=== PATIENT | female | born 1955 | race Caucasian/White ===

== ENCOUNTER 2016-10-03 13:19 | Inpatient (IN) | payer OTHER ==
[~2016-10-03] VITALS: Ht 157.5 cm; Wt 95.6 kg
[~2016-10-03 13:19] MED LIST: ALBU18HF INHALATION; AMLO10TA3 PO; ASPI-973 PO; CLOP75TA3 PO; FLUT12AE10 INHALATION; GABA300C PO; LEVO175T29 PO; LOSA100T29 PO; MONT10TA23 PO; PANT40TA3 PO; SALM50DI INH; SIMV80TA4 PO
[2016-10-03 13:31] VITALS: BP 154/77; PULSE 85; RESP 15; O2SAT 100
--- NOTE | 2016-10-03 13:55 | DRSVH ---
PROCEDURE: CT BRAIN (TPA) ([id number]) INDICATIONS: Stroke TECHNIQUE: Noncontrast 4.5 mm thick angled axial sections acquired from the foramen magnum to the vertex, with c oronal reformats. COMPARISON: [facility], CT, BRAIN (TPA), 08/14/2016, 19:32. FINDINGS: Image quality: Excellent. CSF spaces: Basal cisterns are patent. No extra-axial fluid collections. Ventricles are normal in size and shape. Brain: No midline shift. No intracranial masses or hemorrhage. Madison-white matter interface is norm al. Skull and face: Calvarium and visualized facial bones are intact, without suspicious lesions. Sinuses: Visualized sinuses and mastoids are clear. IMPRESSION: No stroke found, no mass or hemorrhage identified. No contraindication to TPA is found. Findings immediately called to the emergency room physician at 13:51 in the early afternoon. This study fulfills neurological imaging criteria for inclusion or exclusion of acute stroke therapie s based on available published neurological imaging guidelines. Dictated by: Bon Ramirez M.D. on 10/03/2016 at 13:53 Approved by: Bon Ramirez M.D. on 10/03/2016 at 13:53
--- NOTE | 2016-10-03 13:59 | ED.REPORT ---
HPI-Neurologic Deficit Date of Service Oct 03, 2016 ED Provider: Leonard Rapp MD A 60 year old female with a history of TIA, CVA and hypertension presents to the ED complaining of right-sided numbness that began at 1230. Patient reports numbness in her face, right arm and right toes. Her last known well was 1230. Patient's symptoms have been constant since onset. Patient had a CVA on 07/18 that affected her right side and a TIA on 08/14 affected her left side. Patient is currently taking Plavix. She denies weakness, difficulty speaking or blurry vision. Nursing Notes Stated Complaint: POSS STROKE Chief Complaint: Stroke Symptoms Nursing Notes Reviewed: Yes Allergies: Coded Allergies: cephalexin (Verified Allergy, Intermediate, Hives, 10/03/16) Scheduled Amlodipine (Amlodipine) 10 Mg Tablet 10 MG PO DAILY Aspirin (Aspirin) 81 Mg Tablet 81 MG PO DAILY Clopidogrel Bisulfate (Plavix) 75 Mg Tablet 75 MG PO DAILY Fluticasone Propionate (Flovent HFA 220 mcg) 12 Gm Aer.w.adap 2 PUFFS INHALATION BID Gabapentin (Neurontin) 300 Mg Capsule 300 MG PO 0830,12 Gabapentin (Neurontin) 300 Mg Capsule 600 MG PO HS Levothyroxine (Levoxyl) 175 Mcg Tablet 175 MCG PO DAILY Losartan Potassium (Losartan Potassium) 100 Mg Tablet 100 MG PO DAILY Montelukast (Montelukast) 10 Mg Tablet 10 MG PO DAILY Pantoprazole DR (Pantoprazole DR) 40 Mg Tablet.dr 40 MG PO BID Salmeterol Xinafoate (Serevent Diskus) 50 Mcg/Puff Inhaler 1 PUFF INH BID Simvastatin (Simvastatin) 80 Mg Tablet 80 MG PO HS Scheduled PRN Albuterol Sulfate (Ventolin HFA Inhaler) 200 Puff/18 Gm Inhaler 2 PUFFS INHALATION BID PRN PRN For Shortness of Breath General Time Seen by Provider: 13:25 Chief Complaint Other (Right Sided Numbness) Hx Obtained From: Patient Arrived By: Walk-in Sudden in Onset?: Yes Onset Occurred: 1 - 4 hours ago (1230) Symptom Duration: Since onset Progression Since Onset: Constant Associated with: Denies: Weakness Pertinent Negative: Pt denies other symptoms Recent Healthcare: Recent doctor visit, Recent hospitalization Risk Factors TPA Administration/Criteria Stroke Thrombolytic Therapy : TPA Considered: Yes TPA Administered Intravenously: No, exclusion criteria NIH Stroke Scale Level of Consciousness: Alert and responsive (0) Ask Month & Age: Both questions right (0) Open/Close Eyes/Hand Warp Splitter: Performs both tasks (0) Horizontal EO Movements: None (0) Visual Baltazar: No visual loss (0) Facial Palsy: Normal symmetry (0) Right Arm Motor Drift (10s): No drift 10 sec (0) Left Arm Motor Drift (10s): No drift 10 sec (0) Right Leg Motor Drift (5s): No drift 5 sec (0) Left Leg Motor Drift (5s): No drift 5 sec (0) Limb Ataxia FNF/Heel-Gonzalez: No ataxia (0) Sensation (Arms/Legs/Face): Pinprick less sharp (1) Language Aphasia: No aphasia, normal (0) Dysarthria: No dysarthria, normal (0) Extinction/Inattention: No exctinct/inattent (0) NIHSS Score: 1 Time NIHSS Performed: 13:30 Past Medical History Past Medical History Notes: Admitted 07/18/2016 for CVA with right sided facial numbness and MRI positive for stroke in the left thalamus, see neurology consultation by Dr. Street, discharged on low-dose aspirin and statin therapy PCP: Dr. Alvin Gonzalez Past Medical History CVA 07/18/16 hypothyroidism GERD hypertension asthma pre diabetes pancreatitis Reports: Transient ischemic attack Past Surgical History Toe surgery Family History Father had a stroke Smoking History Unknown if Ever Smoker Social History Other Social History: Good social support, , Local resident Ambulatory Status Independent Review of Systems Constitutional: Denies: Chills, Fever Eyes: Denies: Blurred bilateral Respiratory: Denies: Shortness of breath Cardiovascular: Denies: Chest pain GI: Denies: Abdominal pain, Nausea, Vomiting Neurologic: Reports: Numbness (Right side of face, right arm and nasal ), Denies: Change LOC, Slurred speech, Unable to speak, Vision change Complete sys rev & neg: except as marked. Physical Exam Initial Vital Signs Vital Signs (First) Date Time Temp Pulse Resp B/P Pulse Ox O2 Delivery O2 Flow Rate FiO2 10/03/16 13:31 36.7 85 15 154/77 100 Room Air Initial VS: Reviewed Extremities: Vascular intact, Neuro intact, No swelling, No tenderness Skin: Warm, Dry, No cyanosis Psychiatric: Mood/affect normal, Behavior normal, Normal thought content General/Constitutional: Awake, Alert Head / Eyes: Atraumatic, Normocephalic Respiratory / Chest: Atraumatic, Breath sounds NL, Breath sounds = bilat Cardiovascular: Heart rate NL, Regular rhythm, Heart sounds NL, No gallop, No murmurs, No rubs Neurologic: Oriented X3 NERUO: See NIH Stroke Scale in Risk Interpretation & Diagnostics Lab Results Interpretation Result Diagram: 10/03/16 1359 10/03/16 1359 Test 10/03/16 13:59 10/03/16 15:15 White Blood Count 9.9th/mm3 (3.8-10.1) Red Blood Count 4.62mil/mm3 (3.90-5.20) Hemoglobin 13.0g/dL (12.0-15.6) Hematocrit 40.9% (35.0-46.0) Mean Corpuscular Volume 88.5fL (81-100) Mean Corpuscular Hemoglobin 28.1pg (27.0-35.0) Mean Corpuscular Hemoglobin Concent 31.8% (32.0-37.0) Red Cell Distribution Width 13.7% (12.3-15.4) Platelet Count 196bil/L (150-400) Neutrophils (%) (Auto) 65.6% (40-74) Lymphocytes (%) (Auto) 23.0% (14-46) Monocytes (%) (Auto) 8.4% (4-12) Eosinophils (%) (Auto) 2.7% (0-5) Basophils (%) (Auto) 0.1% (0-3) Prothrombin Time 10.0sec (8.1-12.5) Prothromb Time International Ratio 0.94ratio Activated Partial Thromboplast Time 28.2sec (22.8-33.0) Sodium Level 141mEq/L (134-144) Potassium Level 3.5mEq/L (3.5-5.2) Chloride Level 101mEq/L (97-108) Carbon Dioxide Level 27mmol/L (18-29) Blood Urea Nitrogen 8mg/dL (8-27) Creatinine 0.53mg/dL (0.57-1.00) Estimat Glomerular Filtration Rate 167mL/min (>59) Glucose Level 121mg/dL (60-99) Calcium Level 8.9mg/dL (8.5-10.1) Total Bilirubin 0.3mg/dL (0.0-1.2) Aspartate Amino Transf (AST/SGOT) 16U/L (0-50) Alanine Aminotransferase (ALT/SGPT) 17U/L (0-32) Alkaline Phosphatase 110U/L (25-165) Troponin T < 0.010ug/L (0.0-0.011) Total Protein 7.5g/dL (6.4-8.4) Albumin 3.2g/dL (3.4-5.0) Hold Muro Top Tube Received (Received) ECG Interpretation ECG Interpretation: Normal Sinus Rhythm Rate 69 Time: 14:19 Interpreted by: ED physician Normal ECG Interpretation: No change from prior ECGs (08/14) CT Head Interpretation IMPRESSION: No stroke found, no mass or hemorrhage identified. No contraindication to TPA is found. Findings immediately called to the emergency room physician at 13:51 in the early afternoon. This study fulfills neurological imaging criteria for inclusion or exclusion of acute stroke therapies based on available published neurological imaging guidelines. Dictated by: Bon Ramirez M.D. on 10/03/2016 at 13:53 Study: Head CT no contrast Interpretation / Wet Read by: Interpret - Radiologist Re-Eval/Medical Decision Med Decision/Clinical Course Patient presents within the three-hour window for TPA however has symptoms consistent solely of numbness and a stroke scale of 1. She has a known previous stroke less than 3 months ago. For these reasons she is not felt to be a TPA candidate. Post discussed with [facility] stroke neurology and they are in agreement. Patient was advised of this. Given that she had been on Plavix will add 81 mg daily of aspirin as well. We will admit to the hospitalist service for observation. Re-Evaluation/Progress #1: Time of Eval: 14:01 Patient Status: Condition improved Re-Evaluation/Progress #2: Time of Eval: 14:51 Patient Status: Condition improved Re-Evaluation/Progress Note: Patient is he is informed of her lab results, EKG results, X-ray results, CT results and diagnosis. All of the patient's questions are addressed. She understands and agrees with the treatment plan to admit. Consultation #1: Consulted With: Neurology Call Returned at: 14:01 Revenue Liaison: Agrees with eval, Agrees with plan Note: Dr. Iris Kong Agrees TPA not indicated Consultation #2: Referral / Consult Name: Mariusz Gaines MD Consulted With: Neurology Call Returned at: 15:17 Revenue Liaison: Will see patient, Agrees with eval, Agrees with plan Note: Agrees to consult and agrees with plan to give the patient Aspirin Consultation #3: Referral / Consult Name: Luis Kendall MD Consulted With: Hospitalist Call Returned at: 15:20 Revenue Liaison: Will see patient, Agrees with eval, Agrees with plan, Accepts admit Counseled Regarding: Diagnosis, Lab results, Need for admission Discharge & Departure Impression: Primary Impression: Stroke CVA mechanism: unspecified Qualified Code: I63.9 - Cerebral infarction, unspecified Disposition: ADMITTED TO HOSPITAL Discharge Condition All VS Reviewed: Yes Condition: Stable Referrals: Alvin Gonzalez MD (PCP) Scribe Attestation Portions of this note were transcribed by Marcia Reilly. I, Dr. Rapp personally performed the history, physical exam and medical decision-making; I reviewed and confirmed the accuracy of the information in the transcribed note. Signed by: Karrie John, 10/03/16 1525. copies to: Alvin Gonzalez MD, Donald L MD Oct 03, 2016 13:59 MARCIA REILLY Oct 03, 2016 14:02
[2016-10-03 14:20] LABS: BASOPHILS % (AUTO) 0.1 % (0-3); EOSINOPHILS % (AUTO) 2.7 % (0-5); MONOCYTES % (AUTO) 8.4 % (4-12); Mean Corpuscular Hemoglobin 28.1 pg (27.0-35.0); Mean Corpuscular Volume 88.5 fL (81-100); NEUTROPHILS % (AUTO) 65.6 % (40-74); Platelet Count 196 bil/L (150-400)
[2016-10-03 14:35] LABS: INR 0.94 ratio
[2016-10-03 14:42] LABS: TROPONIN T < 0.010 ug/L (0.0-0.011)
[2016-10-03] MEDS ORDERED: Polyethylene Glycol (PEG) 17 Gm Powder PO PRN (15:45)
[2016-10-03] MEDS ORDERED: Ondansetron 2 mg/mL 2 mL Inj IV PRN (15:45)
[2016-10-03] MEDS ORDERED: Alum-Mag Hydrox-Simeth 30 mL Suspension PO PRN (15:45)
[2016-10-03 15:46] LABS: APPEARANCE,URINE CLEAR (CLEAR,HAZY); COLOR,URINE YELLOW (YELLOW); OCCULT BLOOD,URINE NEGATIVE (NEGATIVE); UROBILINOGEN,URINE NORMAL (NORMAL)
--- NOTE | 2016-10-03 15:50 | NUR ---
Evaluation completed. Rec: Thin/Regular diet. Medication as tolerated. Discussed with RN. Please go to "Notes" then click on "Assessments and Notes" (bottom left corner of screen). Then select appropriate discipline tab on top of screen.
[2016-10-03 17:02] VITALS: BP 108/79; PULSE 71; RESP 18; O2SAT 95
[2016-10-03] MEDS ORDERED: ATOR80TA PO (17:47)
[2016-10-03] MEDS ORDERED: GABA-502 PO (17:53)
[2016-10-03 18:10] VITALS: PULSE 68
--- NOTE | 2016-10-03 18:20 | NUR ---
Admission arrived to room 3031 at 1740hrs. patient alert and oriented. no obvious physical/neurologic deficits. speech clear and answering questions appropriately. Admission completed at 1820hrs. continue to monitor.
[2016-10-03 18:24] VITALS: BP 116/72; PULSE 66; RESP 20; O2SAT 96
[2016-10-03 20:46] VITALS: BP 132/74; PULSE 71; RESP 18; O2SAT 96
--- NOTE | 2016-10-03 20:57 | PCM.HPMED ---
Subjective Date of Service Oct 03, 2016 Primary Provider: Admitting Physician: Luis Kendall MD Primary Care Physician: Alvin Gonzalez MD Attending Physician: Luis Kendall MD Chief Complaint: Right facial numbness History of Present Illness: Patient is a 60-year-old right-handed female with a medical history significant for left lacunar stroke, TIAs, hypertension, dyslipidemia, and prediabetes presents with right face, right perioral, and lateral foot numbness. Per patient, reports symptoms started around 12:30 PM while patient was walking into her living room. Numbness was most pronounced around the right perioral area. Patient reports numbness was very similar to her last stroke 07/18/2016. Patient denies any headache, dizziness, or double vision. No unilateral facial droop, or slurred speech. She denies any history of migraines. No chest pain, palpitation, or lightheadedness. Furthermore, she denies any gait disturbances. Patient does admit however, that she normally has right-handed numbness/irritation like her "arm is on fire". She has difficulty pinning needles to fabric since her last documented stroke on 07/18/2016. Her also states that she has some short-term memory loss. Gabapentin has helped. She denies any drooling. But admits to tongue biting about once a month. Patient reports compliance with medication, including lisinopril. She takes Plavix 75 mg daily since her last TIA on 08/15/2016. Patient was seen in the emergency room at [facility] and was admitted to the hospital service. Review of Systems: A comprehensive review of systems was conducted with the patient and found to be negative except as above in the History of Present Illness. Allergies Coded Allergies: cephalexin (Verified Allergy, Intermediate, Hives, 10/03/16) Home Medications Taken from [facility] Atorvastatin 80 mg daily Flovent HFA 220 MCG b.i.d Montelukast 10 mg tablet qd Pantoprazole 20 mg daily Plavix 75 mg daily Levothyroxine from 150 MCG daily Losartan 100 mg daily Gabapentin 600 mg t.i.d PMH CVA: Left thalamic lacunar stroke 07/18/2016 Hypothyroidism GERD Hypertension Asthma Prediabetes Pancreatitis Surgical History History of toe surgery Family History Strong maternal history of Alzheimer disease Mother with Alzheimer disease onset at 75 years old Social History Hx Alcohol Use: Yes (sparingly) Hx Substance Use: No Hx Tobacco Use: No Smoking Status: Unknown if Ever Smoker Living Arrangement: with Family (patient lives with her and her adopted 19-year-old son who is developmentally delayed this creates considerable amount of stress.) Exam Vital Signs Vital Sign - Last Date Time Temp Pulse Resp B/P Pulse Ox O2 Delivery O2 Flow Rate FiO2 10/03/16 17:02 71 18 108/79 95 Room Air 10/03/16 13:31 36.7 Exam General: No acute distress, well-developed, well-nourished, appropriately interactive HEENT: PERRLA, no visual field deficit, conjunctivae pink moist, and no lid lag. Neck: Supple with full range of motion. No jugular venous distension. No bruits. No lymphadenopathy or thyromegaly. Cardiovascular: Regular rate and rhythm with no murmurs, rubs, or gallops appreciated Pulmonary: Clear to auscultation bilaterally with no crackles, wheezes, or rhonchi. Abdomen: Bowel tones present. Soft, obese, nontender, nondistended. No hepatosplenomegaly or masses appreciated. Extremities: No clubbing, cyanosis, edema, or lymphadenopathy appreciated. Skin: Normal temperature, turgor, and texture; no rash, ulcers, or subcutaneous nodules appreciated. Neurological: Cranial nerves grossly intact. Normal muscle strength, tone, and bulk. Reflexes, coordination, and sensory function within normal limits. No known gait impairment. Finger to nose test negative, Romberg tests mild positive Psychiatric: Normal mood and affect. Alert and oriented to person, place, and time. Patient shows no sign of agitation. Lab and Diagnostics Result Diagram: 10/03/16 1359 10/03/16 1359 X-Rays, CTs and MRIs PROCEDURE: CT BRAIN (TPA) INDICATIONS: Stroke IMPRESSION: No stroke found, no mass or hemorrhage identified. No contraindication to TPA is found. Findings immediately called to the emergency room physician at 13:51 in the early afternoon. This study fulfills neurological imaging criteria for inclusion or exclusion of acute stroke therapies based on available published neurological imaging guidelines. Dictated by: Bon Ramirez M.D. on 10/03/2016 at 13:53 Assessment & Plan Patient is a 60-year-old right-handed female with a medical history significant for left lacunar stroke, TIAs, hypertension, dyslipidemia, and prediabetes presents with right face, periorbital, and bilateral foot numbness. Patient is admitted as an inpatient to the hospitalist service for further evaluation and stroke workup. Possible TIA/stroke - MHx of hypertension, dyslipidemia, prediabetes, under a lot of stress due to medically disabled adopted son. - Initial CT head unremarkable - Symptoms slowly resolving today - MR stroke protocol, echocardiogram with bubble study, PT ordered - Neurologist Dr. Orr has been consulted he has recommended adding aspirin to her Plavix. The patient received an aspirin in the emergency room. Dr. orr will follow Hypertension, present admission, active - We will hold lisinopril - Continue permissive hypertension - May restart lisinopril 100 mg daily after 24 hour should SBP continues to be > 160mmhg GERD, present on admission, active - Hx of sliding hiatal hernia. - Patient takes omeprazole prescribed - Last endoscopy at 08/18/2016 showed sliding hiatal hernia with mild inflammation of the esophagus. - Colonoscopy showed mild erythema. Biopsies unremarkable - Continue with pantoprazole. Dyslipidemia, present on admission, active - Lipid panel ordered - Atorvastatin 40 mg daily Hypothyroidism, present on admission, presumed stable - Continue level thyroxine Patient is admitted under inpatient status with expected length of stay GREATER than 2 midnights due to severity of presenting symptoms, risk of adverse event, and complexity of treatment plan. Pain Evaluation: Adequate Pain Control GI Prophylaxis: Proton Pump Inhibitor VTE Prophylaxis: Sub-Q Heparin (Unfractionated) Resuscitation Status: CPR: Attempt Resuscitation Attending Statement Patient seen and examined with Dr. Bimal Gan. Agree with the above history and physical and agree with the above assessment and plan. Will follow. Bimal Gan DO Oct 03, 2016 17:21 Adriano Tejada MD Oct 03, 2016 21:14
[2016-10-04] VITALS (10 sets, daily range): BP systolic 103–138; BP diastolic 63–78; PULSE 61–85; RESP 16–18; O2SAT 92–96
[2016-10-04] MEDS: Heparin 5,000 Unit/mL Inj SUBQ SCH ×3 (00:39→16:08)
--- NOTE | 2016-10-04 06:19 | NUR ---
Neuro Unchanged pt continues to report numbness/tingling around her mouth, nose, right cheek, right hand/ forearm and right foot(near the toes). pt denies having any vision changes, motor deficits or balance issues. pt states no change in her numbness/tingling throughout the night, denies improvement or worsening; states it is "the same" feeling since arrival to the hospital. pt is A&Ox4, denies pain, VSS, afebrile. on 2L O2 at night for desats to 88% asleep on RA, risk for BROOKS. no desats after O2 placed. call light placed within reach, care on-going.
[2016-10-04 07:09] LABS: BASOPHILS % (AUTO) 0.4 % (0-3); EOSINOPHILS % (AUTO) 4.2 % (0-5); MONOCYTES % (AUTO) 9.3 % (4-12); Mean Corpuscular Hemoglobin 28.1 pg (27.0-35.0); Mean Corpuscular Volume 87.9 fL (81-100); NEUTROPHILS % (AUTO) 58.5 % (40-74); Platelet Count 178 bil/L (150-400)
[2016-10-04 07:13] LABS: Magnesium 1.7 mg/dL (1.6-2.6)
[2016-10-04] MEDS ORDERED: Pantoprazole 20 mg ER24 Tablet PO SCH (07:30)
[2016-10-04] MEDS ORDERED: Magnesium Sulf 4 Gm/100 mL H2O 4 GM in IV Premix 1 EACH IV ONE (09:25)
[2016-10-04] MEDS: Fluticasone 100 mCg Inhaler INHALATION SCH ×2 (09:49→20:53)
--- NOTE | 2016-10-04 11:22 | NUR ---
Case Management: Clarification of patient status: inpatient since 10/03/15 per MD order. Neptali Garnica RN
--- NOTE | 2016-10-04 11:50 | NUR ---
Evaluation completed. Please go to "Notes" then click on "Assessments and Notes" (bottom left corner of screen). Then select appropriate discipline tab on top of screen.
--- NOTE | 2016-10-04 13:17 | DRSVH ---
PROCEDURE: MRI STROKE PROTOCOL ([id number]) Pre- and post-contrast brain MRI, non-contrast brain MR angiogram, pre- and postcontrast neck MR jamin ogram INDICATIONS: Right facial numbness, TIA/stroke TECHNIQUE: Brain: Noncontrast axial T1 spin echo, axial T2 fast spin echo, sagittal and axial FLAIR, coronal T2 fast spin echo, axial gradient echo, axial diffusion and ADC through the brain. After the administr ation of contrast, axial 3D VIBE of the cranial vasculature and brain. Brain MRA: Non-contrast 3-D time of flight MR angiogram, with multiple mikfjtt-daynmxinr-mfdkxmllmv (MIP) reformats performed. Neck MRA: Axial and sagittal TruFISP through the neck. Coronal dynamic MR angiogram during administ ration of contrast in the arterial and venous phases, with 3-dimenstional gphyqwq-wyyoklfex-bhcojhqoy n (MIP) reformats constructed from subtraction images. COMPARISON: [facility], CT, CT BRAIN WO CON, 07/18/2016, 5:46. [facility], CT, BRAIN (TPA), 08/14/2016, 19:32. [facility], MR, MR STROKE PROTOCOL, 07/18/2016, 11:[address] [facility], CT, BRAIN (TPA), 10/03/2016, 13:32. [facility], MR, MR STROKE PROTOCOL, 08/15/2016, 8:51. FINDINGS: Image quality: Limited by patient motion artifact. BRAIN: CSF spaces: Ventricles are normal in size and shape. Basal cisterns are patent. No extra-axial flu id collections. Brain: No intracranial bleeds or mass effects. Madison-white matter interface is normal. Diffusion we ighted images show no acute ischemic insults. A few, scattered, punctate foci of increased T2 signal noted in the periventricular and subcortical white matter tracts compatible with minimal chronic whit e cluster ischemic changes. Brainstem appears normal. Normal intravascular flow voids are present. No abnormal intracranial enhancement. Skull and face: Calvarial marrow signal is normal. Orbits appear normal. Sinuses: Sinuses and mastoids are clear. BRAIN MR ANGIOGRAM: Anterior circulation: Intracranial internal carotid arteries are normal in size and enhancement. Th e flow within the paired anterior cerebral arteries is normal and symmetric. The flow within the mid dle cerebral arteries is normal and symmetric. The anterior communicating artery is seen. No stenos es, occlusions, or aneurysms. Posterior circulation: The visualized portions of the vertebral arteries demonstrate normal caliber, and join to form a normal appearing basilar artery. The flow within the posterior cerebral arteries is normal and symmetric. No stenoses, occlusions, or aneurysms. NECK MR ANGIOGRAM: Carotids: Great vessels demonstrate a conventional anatomy as they arise from the aortic arch. The origins of the common carotid arteries appear patent. The calibers and courses of both common caroti d arteries are normal. The bifurcation regions appear normal bilaterally. The internal carotid jason omaira demonstrate normal course and caliber. Posterior circulation: The origins of the vertebral arteries are obscured by motion artifact. More s uperior portions of both vertebral arteries demonstrate normal course and caliber, and join to form a normal appearing basilar artery. Miscellaneous: Subclavian arteries appear patent. Pre-contrast images through the neck show no soft tissue abnormalities. IMPRESSION: BRAIN MRI: 1. No acute intracranial disease process. 2. Minimal, diffuse volume loss. 3. Minimal periventricular and subcortical white matter chronic microvascular ischemic change. 4. No areas of acute or chronic infarction. 5. No intracranial hemorrhage. BRAIN MR ANGIOGRAM: Negative examination. NECK MR ANGIOGRAM: 1. The internal carotid arteries are fully patent bilaterally. 2. The origins of the vertebral arteries are poorly visualized due to motion artifact and cannot be e valuated. Well-visualized portions of the vertebral arteries are fully patent. The estimate of stenosis included in the report of the imaging study was calculated using the NASCET method Dictated by: Ketty Colby MD, PhD on 10/04/2016 at 13:16 Approved by: Ketty Colby MD, PhD on 10/04/2016 at 13:16
[2016-10-04] MEDS: Salmeterol 50 mcg/Puff 28 Inhalation Diskus INHALATION SCH ×2 (13:43→20:53)
[2016-10-04] MEDS: Pantoprazole 40 mg ER24 Tablet PO SCH ×3 (13:43→20:58)
--- NOTE | 2016-10-04 15:31 | NUR ---
Social Work: Initial Assessment Attempt Data & assessment: EMR Reviewed. Patient is a 60 y/o female that admitted for CVA. Patient's NOK is Devante Draper [phone]. patient's insurance is listed as [employer]. Extension Division Director attempted to complete patient's assessment, but the patient was having an ultrasound done. SW will attempt to complete assessment on tomorrow. SW will continue to follow. Plan: SW will attempt to complete Initial Assessment tomorrow. SW will continue to follow. Veronica Zambrano LMSW, ELVIE
--- NOTE | 2016-10-04 15:44 | DRSVH ---
[facility] [address] [place] [address] Echocardiogram Report Name: JEANNETTE FLORES LStudy Date : 10/04/2016 Height: 62 in Hospital Exam Location: [facility] Weight: 213 lb Gender: Female BSA: 2.0 m2 : 1955 Age: 60 yrs BP: 103/63 mmHg Reason For Study: RECURRENT TIA/STROKE Ordering Physician: HOSPITALIST GABOerformed By: Oumar Wilson Referring Physician: LAINE EVRDIN Interpretation Summary 1) Normal left ventricular size, wall motion, and systolic function (EF 65- 70%). 2) Normal right ventricular size and function grossly. 3) No significant valvular abnormalities. 4) Bubble study on 08/16/2016 echocardiogram was negative. 5) Compared to the Echo done 08/16/2016, no significant change. Procedure: A two-dimensional transthoracic echocardiogram with color flow and Doppler was performed. The study quality was technically adequate. Comparison is made with the echocardiogram of 08/16/16. The patient was in normal sinus rhythm during the exam. Left Ventricle: The left ventricle is normal in size. Left ventricular wall thickness is at the upper limits of normal. The ejection fraction is estimated to be 65-70%. Left ventricular systolic function is normal. Left ventricular wall motion is normal. Assessment of diastolic parameters indicates a relaxation abnormality of the left ventricle, consistent with normal filling pressures. Right Ventricle: The right ventricle grossly appears normal in size with probable normal systolic function. Atria: The left atrial size is normal. Right atrium is small. There is no Doppler evidence for an atrial septal defect. Mitral Valve: The mitral valve is normal. There is trace mitral regurgitation. Aortic Valve: The aortic valve is normal in structure and function. There is no aortic valve stenosis. No aortic regurgitation is present. Tricuspid Valve: The tricuspid valve is normal. There is mild tricuspid regurgitation. The right ventricular systolic pressure is estimated at 33 mmHg assuming a right atrial pressure of 3 mm Hg. Pulmonic Valve: The pulmonic valve leaflets are thin and pliable; valve motion is normal. There is no pulmonic valvular regurgitation. Great Vessels: The aortic root is normal size. The dimensions of the ascending aorta are normal. The pulmonary artery is normal size. The IVC is of normal diameter and collapses greater than 50% with a sniff. This suggests a low right atrial pressure of 3 mm Hg. Pericardium/ Pleura There is no pericardial effusion. There is no pleural effusion. MMode/2D Measurements & Calculations LVIDd: 4.1 cm RA long axis LVOT diam: 2.0 cm LVIDs: 2.5 cm LA A2 area: 15.5 cm AoV Openin.9 cm FS: 39.8 % LA A4 area: 20.9 cm RA area Ao root diam: 3.0 cm EPSS: 0.28 cm LA length (vol) asc Aorta Diam IVSd: 1.00 cm : 11.8 cm LVPWd: 0.97 cm LA vol: 51.9 ml RA vol Ao Arch Diam LA vol index : 28.2 ml (Proximal trans.) RA : 14.4 mm2 IVC diam: 1.7 cm LV gross. diameter/BSALV sys. diameter/BSA (cm/m^2): 2.1 (cm/m^2): 1.3 Doppler Measurements & Calculations Ao V2 max MV E max gurjit MV E/A: 0.90 TR max gurjit : 194.6 cm/sec : 90.5 cm/sec Med Peak E' Gurjit : 272.0 cm/sec Ao max P.2 mmHg MV A max gurjit TR max PG Ao mean P.3 mmHg : 100.3 cm/sec E/E' med: 13.2 : 29.6 mmHg LVOT Max Ugrjit Lat Peak E' Gurjit PA V2 max : 157.3 cm/sec : 99.1 cm/sec E/E' lat: 11.5 PA mean PG JOSE(I,D): 2.6 cm : 2.3 mmHg sev ratio: 0.86 MV dec time: 0.24 sec Ao V2 mean LV V1 max PG PA V2 mean : 115.4 cm/sec : 72.9 cm/sec Ao V2 VTI: 33.5 cmLV V1 VTI PA pr(Accel) JOSE(V,D): 2.5 cm2 : 28.8 cm : 41.6 mmHg JOSE indexed to BSA E/e' average (cm^2/m^2): 1.3 : 12.3 Reading Physician:03:44 PM
--- NOTE | 2016-10-04 18:32 | NUR ---
Dayshift No change in neuro checks, pt maintains numbness around mouth - reports its from previous stroke, continues to have tingling and numbness on R side arm and leg down to toes. Pt is steady on feet and independent in room, cooperative with care, at bedside most of shift.
--- NOTE | 2016-10-05 00:17 | PCM.PNMED ---
Subjective Date of Service Oct 05, 2016 Subjective Patient continues to have perioral numbness and numbness and tingling of the fingers of both hands and toes of both feet. She has no other new complaints. Exam Vital Signs Vital Sign - Last Date Time Temp Pulse Resp B/P Pulse Ox O2 Delivery O2 Flow Rate FiO2 10/04/16 20:43 36.9 75 16 123/74 94 Room Air 10/04/16 04:26 2.00 Intake and Output 10/04/16 10/04/16 10/05/16 Cumulative From/Thru 15:00 23:00 07:00 10/03/16 17:41 - 10/04/16 18:07 Intake Total 1440 ml 2149 ml Output Total 850 ml 2000 ml Balance 590 ml 149 ml Intake Oral 1440 ml 2149 ml Output Urine Total 850 ml 2000 ml Exam General: No acute distress, well-developed, well-nourished, appropriately interactive HEENT: PERRLA, no visual field deficit, conjunctivae pink moist, and no lid lag. Neck: Supple with full range of motion. No jugular venous distension. No bruits. No lymphadenopathy or thyromegaly. Cardiovascular: Regular rate and rhythm with no murmurs, rubs, or gallops appreciated Pulmonary: Clear to auscultation bilaterally with no crackles, wheezes, or rhonchi. Abdomen: Bowel tones present. Soft, obese, nontender, nondistended. No hepatosplenomegaly or masses appreciated. Extremities: No clubbing, cyanosis, edema, or lymphadenopathy appreciated. Skin: Normal temperature, turgor, and texture; no rash, ulcers, or subcutaneous nodules appreciated. Neurological: Cranial nerves grossly intact. Normal muscle strength, tone, and bulk. Reflexes, coordination, and sensory function within normal limits. No known gait impairment. Finger to nose test negative, Romberg tests mild positive Psychiatric: Normal mood and affect. Alert and oriented to person, place, and time. Patient shows no sign of agitation. Lab and Diagnostics Result Diagram: 10/04/1662210/04/16622 X-Rays, CTs and MRIs PROCEDURE: CT BRAIN (TPA) INDICATIONS: Stroke IMPRESSION: No stroke found, no mass or hemorrhage identified. No contraindication to TPA is found. Findings immediately called to the emergency room physician at 13:51 in the early afternoon. This study fulfills neurological imaging criteria for inclusion or exclusion of acute stroke therapies based on available published neurological imaging guidelines. Dictated by: Bon Ramirez M.D. on 10/03/2016 at 13:53 IMPRESSION: BRAIN MRI: 1. No acute intracranial disease process. 2. Minimal, diffuse volume loss. 3. Minimal periventricular and subcortical white matter chronic microvascular ischemic change. 4. No areas of acute or chronic infarction. 5. No intracranial hemorrhage. BRAIN MR ANGIOGRAM: Negative examination. NECK MR ANGIOGRAM: 1. The internal carotid arteries are fully patent bilaterally. 2. The origins of the vertebral arteries are poorly visualized due to motion artifact and cannot be evaluated. Well-visualized portions of the vertebral arteries are fully patent. The estimate of stenosis included in the report of the imaging study was calculated using the NASCET method Dictated by: Ketty Colby MD, PhD on 10/04/2016 at 13:16 Approved by: Ketty Colby MD, PhD on 10/04/2016 at 13:16 Cardiac Echo Impressions Echocardiogram Report Name: JEANNETTE FLORES LStudy Date : 10/04/2016 Height: 62 in Hospital Exam Location: [facility] Weight: 213 lb Gender: Female BSA: 2.0 m2 : 1955 Age: 60 yrs BP: 103/63 mmHg Reason For Study: RECURRENT TIA/STROKE Ordering Physician: HOSPITALIST GABOHPerformed By: Oumar Wilson Referring Physician: LAINE VERDIN Interpretation Summary 1) Normal left ventricular size, wall motion, and systolic function (EF 65- 70%). 2) Normal right ventricular size and function grossly. 3) No significant valvular abnormalities. 4) Bubble study on 08/16/2016 echocardiogram was negative. 5) Compared to the Echo done 08/16/2016, no significant change. Procedure: A two-dimensional transthoracic echocardiogram with color flow and Doppler was performed. The study quality was technically adequate. Comparison is made with the echocardiogram of 08/16/16. The patient was in normal sinus rhythm during the exam. Left Ventricle: The left ventricle is normal in size. Left ventricular wall thickness is at the upper limits of normal. The ejection fraction is estimated to be 65-70%. Left ventricular systolic function is normal. Left ventricular wall motion is normal. Assessment of diastolic parameters indicates a relaxation abnormality of the left ventricle, consistent with normal filling pressures. Right Ventricle: The right ventricle grossly appears normal in size with probable normal systolic function. Atria: The left atrial size is normal. Right atrium is small. There is no Doppler evidence for an atrial septal defect. Mitral Valve: The mitral valve is normal. There is trace mitral regurgitation. Aortic Valve: The aortic valve is normal in structure and function. There is no aortic valve stenosis. No aortic regurgitation is present. Tricuspid Valve: The tricuspid valve is normal. There is mild tricuspid regurgitation. The right ventricular systolic pressure is estimated at 33 mmHg assuming a right atrial pressure of 3 mm Hg. Pulmonic Valve: The pulmonic valve leaflets are thin and pliable; valve motion is normal. There is no pulmonic valvular regurgitation. Great Vessels: The aortic root is normal size. The dimensions of the ascending aorta are normal. The pulmonary artery is normal size. The IVC is of normal diameter and collapses greater than 50% with a sniff. This suggests a low right atrial pressure of 3 mm Hg. Pericardium/ Pleura There is no pericardial effusion. There is no pleural effusion. Assessment & Plan Patient is a 60-year-old right-handed female with a medical history significant for left lacunar stroke, TIAs, hypertension, dyslipidemia, and prediabetes presents with right face, periorbital, and bilateral foot numbness. Patient is admitted as an inpatient to the hospitalist service for further evaluation and stroke workup. Possible TIA/stroke - MHx of hypertension, dyslipidemia, prediabetes, under a lot of stress due to medically disabled adopted son. - Initial CT head unremarkable - Symptoms slowly resolving today - MR stroke protocol fails to reveal source of patient's symptoms - Echocardiogram fails to reveal source of patient's symptoms - Continue PT ordered - Neurologist Dr. Orr has been consulted he has recommended adding aspirin to her Plavix. The patient received an aspirin in the emergency room. Dr. orr will follow Hypertension, present admission, active - We will hold lisinopril for now - Continue permissive hypertension - May restart lisinopril 100 mg daily after 24 hour should SBP continues to be > 160mmhg Hypomagnesemia - We will give 4 g of IV magnesium sulfate today GERD, present on admission, active - Hx of sliding hiatal hernia. - Patient takes omeprazole prescribed - Last endoscopy at 08/18/2016 showed sliding hiatal hernia with mild inflammation of the esophagus. - Colonoscopy showed mild erythema. Biopsies unremarkable - Continue with pantoprazole. Dyslipidemia, present on admission, active - Lipid panel ordered - Atorvastatin 40 mg daily Hypothyroidism, present on admission, presumed stable - Continue level thyroxine Disposition: I have discussed case with neurology Dr. Orr and he would like to keep the patient one more day for close observation, and discharge home tomorrow if she is stable. Pain Evaluation: Adequate Pain Control GI Prophylaxis: Proton Pump Inhibitor VTE Prophylaxis: Sub-Q Heparin (Unfractionated) VTE Mechanical Devices: Intermittant Pneumatic CD Resuscitation Status: CPR: Attempt Resuscitation Corona,Adriano Fuentes MD Oct 05, 2016 00:17
[2016-10-05 01:20] VITALS: BP 114/60; PULSE 66; RESP 18; O2SAT 96
[2016-10-05] MEDS: Heparin 5,000 Unit/mL Inj SUBQ SCH ×3 (01:20→16:16)
--- NOTE | 2016-10-05 05:32 | NUR ---
HEADACHE At start of shift, pt c/o headache, "I've had it for about an hr." VS obtained, stable. No facial droop or change in speech. No new neuro c/o from pt, continues to have some "tingling" in right UE and LE. called, rec'd orders for prn po tylenol. Dose of prn tylenol given, headache improved, pt able to sleep. Continue to monitor. Call light in reach. Intentional rounding.
[2016-10-05 05:46] VITALS: BP 113/65; PULSE 73; RESP 18; O2SAT 98
[2016-10-05 07:16] LABS: BASOPHILS % (AUTO) 0.3 % (0-3); MONOCYTES % (AUTO) 8.2 % (4-12); Mean Corpuscular Volume 88.6 fL (81-100); Platelet Count 183 bil/L (150-400)
[2016-10-05 07:58] LABS: Magnesium 2.5 mg/dL (1.6-2.6); Phosphorus 3.2 mg/dL (2.5-4.9)
[2016-10-05 09:13] VITALS: BP 126/74; PULSE 74; RESP 18; O2SAT 96
[2016-10-05] MEDS: Pantoprazole 40 mg ER24 Tablet PO SCH (09:19)
[2016-10-05] MEDS: Salmeterol 50 mcg/Puff 28 Inhalation Diskus INHALATION SCH (09:20)
[2016-10-05] MEDS: Fluticasone 100 mCg Inhaler INHALATION SCH (09:20)
--- NOTE | 2016-10-05 14:24 | CONS ---
[address] [address] CONSULTATION REPORT PATIENT: JEANNETTE FLORES : 1955 MR#: [id number] ADMIT: 10/03/2016 JOB ID: [id number] DATE OF SERVICE: 10/04/2016 NEUROLOGY CONSULTATION: REQUESTING PROVIDER: Dr. Tejada. HISTORY OF PRESENT ILLNESS: The patient is a very pleasant 60-year-old woman well known to me with multiple medical problems, who presented to the emergency department with what she reports as a reemergence of neurologic symptoms that initially brought her to the hospital on July 18, 2016. That is, right face and right upper extremity numbness. She reports sudden onset of these symptoms. Her reports that he noted the sudden change while she was seated and reading a book. NIH stroke scale of 0, modified Cochran score of 1. He reports that her symptoms have been gradually improving after admission. She did not receive tPA and as her NIH stroke scale was only 1 for pinprick appearing less sharp on her right face and right arm. She was on Plavix at the time of the event. An MRI was performed, and I reviewed it in detail with the patient and her . It demonstrated no acute intracranial disease process, minimal diffuse volume loss, minimal periventricular and subcortical white matter, chronic microvascular ischemic changes, no areas of acute or chronic infarction, no intracranial hemorrhage. Negative MRA, and MRA of the neck demonstrated internal carotid arteries fully patent bilaterally. The origins of the vertebral arteries were poorly visualized due to motion artifact and cannot be evaluated. Well-visualized portions of the vertebral arteries appear normal. She also had an echocardiogram, which demonstrated normal left ventricular size, wall motion and systolic function with an ejection fraction of 65% to 70%. Normal right ventricular size and function grossly. No significant valvular abnormalities. A bubble study of August 16, 2016, was negative. Compared to the echo done on August 16, 2016, no significant change. Telemetry has so far been unrevealing. VITAL SIGNS: Temperature 36.9, pulse of 68, blood pressure 123/74, pulse oximetry . REVIEW OF SYSTEMS: A complete review of systems was performed and was remarkable for above-noted. HOME MEDICATIONS: 1. Atorvastatin 80 mg. 2. Flovent. 3. Montelukast. 4. Pantoprazole 20 mg daily. 5. Plavix 75 mg daily. 6. Levothyroxine. 7. Losartan. 8. Gabapentin 600 mg t.i.d. ALLERGIES: Ciprofloxacin. PAST MEDICAL HISTORY: As above noted. She did have a left thalamic lacunar stroke on July 18, 2016, and she was admitted at approximately a month later with transient neurologic symptoms suggestive of a transient ischemic attack affecting her left upper extremity. Hypothyroidism, gastroesophageal reflux disease, hypertension, asthma, pre-diabetes and pancreatitis. She reports that the left-sided numbness has completely resolved, and she had also noted resolution of the right face and right upper extremity numbness, with a minor residual of numbness of her lips on the right side. SURGICAL HISTORY: Status post toe surgery. FAMILY HISTORY: Alzheimer disease; no family history of stroke. SOCIAL HISTORY: She takes no alcohol, no drugs and no tobacco. Lives with her , and she lives with two sons, one of which is developmentally delayed, and has noted that she has been under increased stress. LABORATORY DATA: WBC 9.9, hemoglobin 13.2, hematocrit 40.9, platelets of 96. Sodium 141, potassium 3.5, chloride was 101, bicarb was 27, BUN was 8, creatinine was 0.53 and glucose was 121. PHYSICAL EXAMINATION: General: She is a well-developed, well-nourished woman in no acute distress. Head: Normocephalic, atraumatic. Neck is supple. No carotid bruits were auscultated. Chest clear to auscultation. Heart: Regular rate and rhythm. Abdomen: Soft, nondistended, nontender. Extremities: No cyanosis, clubbing, or edema. NEUROLOGIC EXAMINATION: Mental status: She is awake, alert, and oriented x3. Speech clear and fluent with intact comprehension. There was no aphasia. Cranial nerves: Pupils equal, round, reactive to light. Extraocular movements were smooth and conjugate with no evidence of nystagmus. Face appeared symmetrical. Facial sensation was intact to light touch and temperature. Auditory sensation was intact to finger rub. Palatal elevation was symmetrical. Tongue was midline. Sternocleidomastoid and trapezii are 5/5 bilaterally. Motor: No pronator drift was noted. Muscle strength 5/5 bilaterally. Sensation: She did note increased sensation to pinprick in her right hand. However, no other sensory abnormalities were noted. Otherwise, intact to light touch, temperature and pinprick. Coordination: [id number]-cj-[id number] was intact without evidence of dysmetria. Deep tendon reflexes 2+ and symmetrical. Plantars were flexor bilaterally. Gait: Normal narrow-based gait. Negative Romberg. ASSESSMENT AND PLAN: Suspect transient ischemic attack versus stuttering transient ischemic attacks. In light of this, I would continue her on aspirin 81 mg and Plavix 75 mg. I would continue to optimize control of underlying stroke risk factors including hypertension, hyperlipidemia and pre-diabetes. I also suspect that stress may play a role in her symptoms as well. Continue stroke protocol. Continue to optimize control of stroke risk factors. Incidentally, she noted that on the last admission, as well as this admission, her magnesium level was less than 2. She has received magnesium repletion here and during the last admission. Although less likely to be the etiology of her symptoms, I do recommend that a magnesium level be checked on the morning of October 05, 2016, and the magnesium level should be above 2 prior to leaving the hospital. We also discussed magnesium supplementation with magnesium oxide or magnesium glycinate 250 to 400 mg at bedtime. Reviewed side effects which include diarrhea. I recommend continued optimization of her stroke risk factors. If she continues to have recurrent episodes, she may benefit from a referral as an outpatient to the speech cerebrovascular center for further evaluation. Thank you, again, Dr. Tejada, for allowing me to participate in the care of your patient. Please feel free to contact me with any questions or concerns. GHASSAN
[2016-10-05 15:27] VITALS: BP 119/76; PULSE 74; RESP 18; O2SAT 94
--- NOTE | 2016-10-05 15:56 | PCM.DIMED ---
Discharge Instructions Date of Service Oct 05, 2016 Dates of Hospitalization Oct 03, 2016 at 16:07 Discharge Diagnosis Discharge Diagnosis Stuttering Transient Ischemic Attacks Diet Heart Healthy Activity No restrictions (May resume usual activities gradually as tolerated.) Call your provider Fever or Chills, Shortness of breath, Bleeding, Chest pain, Vomitting, Excessive diarrhea, Weakness (unilateral), Other Patient Instructions Follow-up Provider: Alvin Gonzalez MD Follow-up with PCP in: 1 week Adriano Tejada MD Oct 05, 2016 15:55
[2016-10-05] MEDS ORDERED: ASPI-973 PO (16:03)
[2016-10-05] MEDS ORDERED: MAGN400C PO (16:03)
[2016-10-05] MEDS ORDERED: PANT40TA3 PO (16:03)
[2016-10-05] MEDS ORDERED: GABA-502 PO (16:03)
--- NOTE | 2016-10-05 16:32 | NUR ---
Social Work-discharge: Data:EMR Reviewed. Pt is medically stable to discharge. PT has cleared pt for home. SW confirmed plan home no needs. Pt's to provide transport home. All updated and agreeable to plan. Assessment:pt who is independent at baseline. Plan:Pt to discharge home today via POV. No discharge needs identified. All updated and agreeable to plan. GARRET Reeves
--- NOTE | 2016-10-05 18:45 | NUR ---
DISCHARGE Patient discharged at 1830, left with who will dive her home. Medications reviewed and new Rx's gone over, patient verbalized understanding. Follow up appointments with PCP and Dr Gaines reviewed, IV catheter removed intact, and patient denies pain, shortness of breath and nausea.
--- NOTE | 2016-10-05 21:07 | CONS ---
[address] [address] CONSULTATION REPORT PATIENT: JEANNETTE FLORES : 1955 MR#: [id number] ADMIT: 10/03/2016 JOB ID: [id number] DATE OF SERVICE: 10/05/2016 SUBJECTIVE: No overnight events. She does report that she continues to feel paresthesias involving the right side of her face, as well as her right upper extremity. No other new neurologic symptoms though. OBJECTIVE: Vital signs is temperature 36.9, pulse is 74, respiratory rate of 18, blood pressure 119/76, and pulse oximetry 94% on room air. Physical examination: She is a well-developed, well-nourished woman in no acute distress. Head: Normocephalic, atraumatic. Neck is supple. No carotid bruits were auscultated. Chest: Clear to auscultation. Heart: Regular rate and rhythm. Abdomen: Soft, nondistended, nontender. Extremities: No cyanosis, clubbing, or edema. NEUROLOGIC EXAMINATION: Mental status: She is awake, alert, oriented x3. Speech clear and fluent with intact comprehension. There was no aphasia. Cranial nerves: Pupils equal, round, reactive to light. Extraocular eye for ocular movements were smooth and conjugate with no evidence of nystagmus. Face appeared symmetrical. Facial sensation was intact to light touch and temperature. Auditory sensation was intact to finger rub. Palatal elevation was symmetrical. Tongue was midline. Sternocleidomastoid and trapezii were 5/5 bilaterally. Motor: No pronator drift was noted. Muscle strength 5/5 bilaterally. Sensation: She did note increased sensation to pinprick in her right hand, however, no other sensory abnormalities were noted. The rest of her sensory examination was intact to light touch temperature and pinprick. Coordination: Ejysol-hc-moht was intact without evidence of dysmetria. Deep tendon reflexes were 2+ and symmetrical. Plantars are flexor bilaterally. Gait: Normal narrow-based gait. Negative Romberg. IMPRESSION AND RECOMMENDATIONS: Although it is certainly possible that this episode represented a transient ischemic attack, another possibility is that she has a stuttering lacunar thalamic left thalamic stroke. I also suspect that the low magnesium level may have exacerbated the paresthesias that a residual from the prior stroke. We did discuss increasing the gabapentin to nine her mg t.i.d. yesterday and she reports that she has noted significant improvement, although she did report feeling mildly sedated today after increasing the gabapentin dose. Reviewed side effects of gabapentin in detail. We also discussed supplemental magnesium oxide or magnesium Glycinate 250-100 mg at bedtime. Reviewed side effects which may include diarrhea. My suspicion is that the transient ischemic attack vs. worsened stuttering left thalamic lacunar was likely secondary to underlying stroke risk factors of hypertension, hyperlipidemia, as prediabetes as well as increases stress. I do recommend that she continue on aspirin 81 mg daily and Plavix 75 mg daily. We discussed the importance of continuing to optimize control of her stroke risk factors. We also discussed the importance of monitoring her blood pressures at least once daily in the morning for one week and recording them. I advised her to follow up with Dr. Gonzalez, her primary care provider. I also do recommend that she follow up with me as an outpatient in the Neurology Clinic. We discussed the importance of optimizing control for stroke risk factors. We also discussed slowly building up her fitness level and gradually building up her endurance. NIH stroke scale is 0 and modified Julian scale is 0. Thank you again, Dr. Tejada, for allowing me to participate in the care of your patient. Please feel free to contact me with any questions or concerns. GHASSAN
--- NOTE | 2016-10-06 00:41 | PCM.DC.MED ---
Discharge Summary Date of Service Oct 05, 2016 Dates of Hospitalization Date of Hospital Admission Oct 03, 2016 at 16:07 Date of Discharge: Oct 05, 2016 Providers: Admitting Physician: Luis Kendall MD Primary Care Physician: Alvin Gonzalez MD Attending Physician: Luis Kendall MD Diagnosis at Time of Discharge Diagnosis at Time of Discharge Stuttering Transient Ischemic Attacks Consultations Dr. Gaines of neurology Procedures XRay, CTs & MRIs PROCEDURE: CT BRAIN (TPA) INDICATIONS: Stroke IMPRESSION: No stroke found, no mass or hemorrhage identified. No contraindication to TPA is found. Findings immediately called to the emergency room physician at 13:51 in the early afternoon. This study fulfills neurological imaging criteria for inclusion or exclusion of acute stroke therapies based on available published neurological imaging guidelines. Dictated by: Bon Ramirez M.D. on 10/03/2016 at 13:53 IMPRESSION: BRAIN MRI: 1. No acute intracranial disease process. 2. Minimal, diffuse volume loss. 3. Minimal periventricular and subcortical white matter chronic microvascular ischemic change. 4. No areas of acute or chronic infarction. 5. No intracranial hemorrhage. BRAIN MR ANGIOGRAM: Negative examination. NECK MR ANGIOGRAM: 1. The internal carotid arteries are fully patent bilaterally. 2. The origins of the vertebral arteries are poorly visualized due to motion artifact and cannot be evaluated. Well-visualized portions of the vertebral arteries are fully patent. The estimate of stenosis included in the report of the imaging study was calculated using the NASCET method Dictated by: Ketty Colby MD, PhD on 10/04/2016 at 13:16 Approved by: Ketty Colby MD, PhD on 10/04/2016 at 13:16 Cardiac Echo Impression Echocardiogram Report Name: JEANNETTE FLORES LStudy Date : 10/04/2016 Height: 62 in Hospital Exam Location: [facility] Weight: 213 lb Gender: Female BSA: 2.0 m2 : 1955 Age: 60 yrs BP: 103/63 mmHg Reason For Study: RECURRENT TIA/STROKE Ordering Physician: HOSPITALIST SVHPerformed By: Oumar Wilson Referring Physician: LAINE VERDIN Interpretation Summary 1) Normal left ventricular size, wall motion, and systolic function (EF 65- 70%). 2) Normal right ventricular size and function grossly. 3) No significant valvular abnormalities. 4) Bubble study on 08/16/2016 echocardiogram was negative. 5) Compared to the Echo done 08/16/2016, no significant change. Procedure: A two-dimensional transthoracic echocardiogram with color flow and Doppler was performed. The study quality was technically adequate. Comparison is made with the echocardiogram of 08/16/16. The patient was in normal sinus rhythm during the exam. Left Ventricle: The left ventricle is normal in size. Left ventricular wall thickness is at the upper limits of normal. The ejection fraction is estimated to be 65-70%. Left ventricular systolic function is normal. Left ventricular wall motion is normal. Assessment of diastolic parameters indicates a relaxation abnormality of the left ventricle, consistent with normal filling pressures. Right Ventricle: The right ventricle grossly appears normal in size with probable normal systolic function. Atria: The left atrial size is normal. Right atrium is small. There is no Doppler evidence for an atrial septal defect. Mitral Valve: The mitral valve is normal. There is trace mitral regurgitation. Aortic Valve: The aortic valve is normal in structure and function. There is no aortic valve stenosis. No aortic regurgitation is present. Tricuspid Valve: The tricuspid valve is normal. There is mild tricuspid regurgitation. The right ventricular systolic pressure is estimated at 33 mmHg assuming a right atrial pressure of 3 mm Hg. Pulmonic Valve: The pulmonic valve leaflets are thin and pliable; valve motion is normal. There is no pulmonic valvular regurgitation. Great Vessels: The aortic root is normal size. The dimensions of the ascending aorta are normal. The pulmonary artery is normal size. The IVC is of normal diameter and collapses greater than 50% with a sniff. This suggests a low right atrial pressure of 3 mm Hg. Pericardium/ Pleura There is no pericardial effusion. There is no pleural effusion. Brief History Patient is a 60-year-old right-handed female with a medical history significant for left lacunar stroke, TIAs, hypertension, dyslipidemia, and prediabetes presents with right face, right perioral, and lateral foot numbness. Per patient, reports symptoms started around 12:30 PM while patient was walking into her living room. Numbness was most pronounced around the right perioral area. Patient reports numbness was very similar to her last stroke 07/18/2016. Patient denies any headache, dizziness, or double vision. No unilateral facial droop, or slurred speech. She denies any history of migraines. No chest pain, palpitation, or lightheadedness. Furthermore, she denies any gait disturbances. Patient does admit however, that she normally has right-handed numbness/irritation like her "arm is on fire". She has difficulty pinning needles to fabric since her last documented stroke on 07/18/2016. Her also states that she has some short-term memory loss. Gabapentin has helped. She denies any drooling. But admits to tongue biting about once a month. Patient reports compliance with medication, including lisinopril. She takes Plavix 75 mg daily since her last TIA on 08/15/2016. Patient was seen in the emergency room at [facility] and was admitted to the hospital service. Hospital Course Patient is a 60-year-old right-handed female with a medical history significant for left lacunar stroke, TIAs, hypertension, dyslipidemia, and prediabetes presents with right face, periorbital, and bilateral foot numbness. Patient is admitted as an inpatient to the hospitalist service for further evaluation and stroke workup. Possible TIA/stroke - MHx of hypertension, dyslipidemia, prediabetes, under a lot of stress due to medically disabled adopted son and daughter with Rett's syndrome. - Initial CT head unremarkable - Symptoms slowly resolving today - MR stroke protocol fails to reveal source of patient's symptoms - Echocardiogram fails to reveal source of patient's symptoms - Continue PT ordered - Neurologist Dr. Gaines has been consulted he has recommended adding aspirin to her Plavix. The patient received an aspirin in the emergency room. We will also decrease the patient's Protonix to 40 mg by mouth daily in hopes that if there was any interference with the proton pump inhibitor and observe her Plavix this would be minimized. Hypertension, present admission, active - We will hold lisinopril for now - Continue permissive hypertension - May restart lisinopril 100 mg daily after 24 hour should SBP continues to be > 160mmhg Hypomagnesemia - We will give 4 g of IV magnesium sulfate today GERD, present on admission, active - Hx of sliding hiatal hernia. - Patient takes omeprazole prescribed - Last endoscopy at 08/18/2016 showed sliding hiatal hernia with mild inflammation of the esophagus. - Colonoscopy showed mild erythema. Biopsies unremarkable - Continue with pantoprazole. Dyslipidemia, present on admission, active - Lipid panel ordered - Atorvastatin 40 mg daily Hypothyroidism, present on admission, presumed stable - Continue level thyroxine Disposition: I have discussed case with neurology Dr. Gaines and patient is stable to be discharged. Exam Vital Signs (Last) Date Time Temp Pulse Resp B/P Pulse Ox O2 Delivery O2 Flow Rate FiO2 10/05/16 15:27 36.9 74 18 119/76 94 Room Air 10/05/16 05:46 2.00 Exam General: No acute distress, well-developed, well-nourished, appropriately interactive HEENT: PERRLA, no visual field deficit, conjunctivae pink moist, and no lid lag. Neck: Supple with full range of motion. No jugular venous distension. No bruits. No lymphadenopathy or thyromegaly. Cardiovascular: Regular rate and rhythm with no murmurs, rubs, or gallops appreciated Pulmonary: Clear to auscultation bilaterally with no crackles, wheezes, or rhonchi. Abdomen: Bowel tones present. Soft, obese, nontender, nondistended. No hepatosplenomegaly or masses appreciated. Extremities: No clubbing, cyanosis, edema, or lymphadenopathy appreciated. Skin: Normal temperature, turgor, and texture; no rash, ulcers, or subcutaneous nodules appreciated. Neurological: Cranial nerves grossly intact. Normal muscle strength, tone, and bulk. Reflexes, coordination, and sensory function within normal limits. No known gait impairment. Finger to nose test negative, Romberg tests mild positive Psychiatric: Normal mood and affect. Alert and oriented to person, place, and time. Patient shows no sign of agitation. Test 10/03/16 13:59 10/03/16 15:15 10/04/16 06:23 10/05/16 07:00 Prothrombin Time 10.0sec (8.1-12.5) Prothromb Time International Ratio 0.94ratio Activated Partial Thromboplast Time 28.2sec (22.8-33.0) Troponin T < 0.010ug/L (0.0-0.011) Hold Muro Top Tube Received (Received) Urine Color Yellow (YELLOW) Urine Appearance Clear (CLEAR,HAZY) Urine pH 8.0 (5.0-8.0) Urine Specific [place] 1.020 (1.003-1.035) Urine Protein Negativemg/dL (NEG,TRACE) Urine Glucose (UA) Negativemg/dL (NEGATIVE) Urine Ketones Negativemg/dL (NEGATIVE) Urine Occult Blood Negative (NEGATIVE) Urine Nitrite Negative (NEGATIVE) Urine Bilirubin Negative (NEGATIVE) Urine Urobilinogen Normalmg/dL (NORMAL) Urine Leukocyte Esterase Negative (NEGATIVE) Urine RBC 0-2/hpf (0-2) Urine WBC 0-5/hpf (0-5) Urine Epithelial Cells None/hpf (NONE-MOD) Urine Crystals None seen (NONE SEEN) Urine Bacteria None/hpf (NONE-FEW) Urine Hyaline Casts None/lpf (NONE) Urine Granular Casts None seen (NONE SEEN) Urine Waxy Casts None seen (NONE SEEN) Urine Red Blood Cell Casts None seen (NONE SEEN) Urine White Blood Cell Casts None seen (NONE SEEN) Urine Mucus None seen (None Seen) Urine Trichomonas None seen (NONE SEEN) Urine Yeast None (NONE SEEN) Urinalysis Comment None Urine Culture Reflexed Not indicated Triglycerides Level 146mg/dL (0-149) Cholesterol Level 120mg/dL (100-199) LDL Cholesterol, Calculated 49.800mg/dL (0-99) VLDL Cholesterol 29.200mg/dL HDL Cholesterol 41mg/dL (>39) Cholesterol/HDL Ratio 2.93 (0.0-4.4) White Blood Count 7.6th/mm3 (3.8-10.1) Red Blood Count 4.46mil/mm3 (3.90-5.20) Hemoglobin 12.5g/dL (12.0-15.6) Hematocrit 39.5% (35.0-46.0) Mean Corpuscular Volume 88.6fL (81-100) Mean Corpuscular Hemoglobin 28.0pg (27.0-35.0) Mean Corpuscular Hemoglobin Concent 31.6% (32.0-37.0) Red Cell Distribution Width 13.9% (12.3-15.4) Platelet Count 183bil/L (150-400) Neutrophils (%) (Auto) 60.0% (40-74) Lymphocytes (%) (Auto) 27.4% (14-46) Monocytes (%) (Auto) 8.2% (4-12) Eosinophils (%) (Auto) 4.0% (0-5) Basophils (%) (Auto) 0.3% (0-3) Sodium Level 142mEq/L (134-144) Potassium Level 3.9mEq/L (3.5-5.2) Chloride Level 104mEq/L (97-108) Carbon Dioxide Level 28mmol/L (18-29) Blood Urea Nitrogen 8mg/dL (8-27) Creatinine 0.49mg/dL (0.57-1.00) Estimat Glomerular Filtration Rate 183mL/min (>59) Glucose Level 133mg/dL (60-99) Calcium Level 7.9mg/dL (8.5-10.1) Phosphorus Level 3.2mg/dL (2.5-4.9) Magnesium Level 2.5mg/dL (1.6-2.6) Total Bilirubin 0.3mg/dL (0.0-1.2) Aspartate Amino Transf (AST/SGOT) 15U/L (0-50) Alanine Aminotransferase (ALT/SGPT) 15U/L (0-32) Alkaline Phosphatase 102U/L (25-165) Total Protein 6.8g/dL (6.4-8.4) Albumin 3.3g/dL (3.4-5.0) Discharge Medications Discharge Medications Amlodipine (Amlodipine) 10 Mg Tablet 10 MG PO DAILY (Reported) Aspirin (Aspirin) 81 Mg Tablet 81 MG PO DAILY Prescribed by: STEVE TEJADA MD Atorvastatin (Lipitor) 80 Mg Tablet 80 MG PO DAILY (Reported) Clopidogrel Bisulfate (Plavix) 75 Mg Tablet 75 MG PO DAILY Prescribed by: STEVE TEJADA MD Fluticasone Propionate (Flovent HFA 220 mcg) 12 Gm Aer.w.adap 2 PUFFS INHALATION BID (Reported) Gabapentin (Gabapentin) 300 Mg Capsule 900 MG PO TID Prescribed by: STEVE TEJADA MD Levothyroxine (Levoxyl) 175 Mcg Tablet 175 MCG PO DAILY (Reported) Losartan Potassium (Losartan Potassium) 100 Mg Tablet 100 MG PO DAILY (Reported ) Magnesium Oxide (Magnesium) 400 Mg Capsule 400 MG PO DAILY Prescribed by: STEVE TEJADA MD Montelukast (Montelukast) 10 Mg Tablet 10 MG PO TID (Reported) Pantoprazole DR (Pantoprazole DR) 40 Mg Tablet.dr 40 MG PO DAILY Prescribed by: STEVE TEJADA MD Salmeterol Xinafoate (Serevent Diskus) 50 Mcg/Puff Inhaler 1 PUFF INH BID ( Reported) As needed Albuterol Sulfate (Ventolin HFA Inhaler) 200 Puff/18 Gm Inhaler 2 PUFFS INHALATION BID PRN PRN For Shortness of Breath (Reported) Followup Plan Disposition: Patient being discharged home. Discharge Diet: Heart Healthy Discharge Activity: No restrictions Follow-up Provider: Alvin Gonzalez MD Follow-up with PCP in: 1 week Time spent Time spent on discharging this patient was greater than 35 minutes, over half of which was involved in counseling and coordination of care. Adriano Tejada MD Oct 06, 2016 00:41
== END 2016-10-05 18:30 | disposition home or self-care (01) | DRG 69 ==
LOC: SED 13:19 → MPC 16:07 → OBSVTOIN 16:07
PROVIDERS: ADMIT Internal Medicine; ATTEND Internal Medicine Infectious Disease
DX: G45.8 Other transient cerebral ischemic attacks and related syndromes (principal); I10 Essential (primary) hypertension; E03.9 Hypothyroidism, unspecified; Z86.73 Personal history of transient ischemic attack (TIA), and cerebral infarction without residual deficits; E78.5 Hyperlipidemia, unspecified; K21.9 Gastro-esophageal reflux disease without esophagitis; J45.909 Unspecified asthma, uncomplicated; R73.03 Prediabetes

== ENCOUNTER 2017-02-22 12:11 | Emergency (ER) | payer OTHER ==
[~2017-02-22] VITALS: Ht 157.5 cm; Wt 102.0 kg
[~2017-02-22 12:11] MED LIST changes: +ATOR80TA PO; +GABA-502 PO; -GABA300C PO; +MAGN400C PO; -SIMV80TA4 PO
[2017-02-22 12:17] VITALS: BP 124/74; PULSE 69; RESP 16; O2SAT 97
[2017-02-22 12:57] LABS: BASOPHILS % (AUTO) 0.2 % (0-3); EOSINOPHILS % (AUTO) 3.6 % (0-5); MONOCYTES % (AUTO) 9.3 % (4-12); Mean Corpuscular Hemoglobin 27.5 pg (27.0-35.0); Mean Corpuscular Volume 87.4 fL (81-100); NEUTROPHILS % (AUTO) 66.5 % (40-74); Platelet Count 204 bil/L (150-400)
--- NOTE | 2017-02-22 13:18 | DRSVH ---
PROCEDURE: X-RAY CHEST, TWO VIEWS ([id number]) INDICATIONS: chest pain' TECHNIQUE: 2 views of the chest were acquired. COMPARISON: [facility], CR, XR CHEST 1VW (PORTABLE), 07/18/2016, 5:11. FINDINGS: Surgical changes and devices: None. Lungs and pleura: Thin linear interstitial markings are present within the bilateral lungs which are slightly more prominent at the left lung base. There is no lobar consolidation, effusion, or pneumot horax. Mediastinum: Mediastinal contours are normal. Heart size is normal. There is aortic atherosclerosi s. Bones and chest wall: No suspicious bony abnormalities. Age-appropriate degenerative changes of the spine are noted. There also degenerative changes involving at least the right acromioclavicular neftaly nt. Soft tissues appear unremarkable. IMPRESSION: Mild basilar scarring/atelectasis. No pneumonia or overt heart failure. Dictated by: Arun Ramos M.D. on 02/22/2017 at 12:16 Approved by: Arun Ramos M.D. on 02/22/2017 at 12:17
[2017-02-22] MEDS ORDERED: RANI150C4 PO (13:20)
[2017-02-22] MEDS ORDERED: OXYB5TAB10 PO (13:20)
[2017-02-22 13:25] VITALS: BP 132/67; PULSE 67; RESP 20; O2SAT 98
[2017-02-22 13:25] LABS: Magnesium 1.7 mg/dL (1.6-2.6)
[2017-02-22] MEDS ORDERED: Ketorolac 15 mg/mL Inj IVPUSH ONE (13:25)
--- NOTE | 2017-02-22 13:36 | ED.REPORT ---
HPI-Chest Pain 40 and Over Date of Service Feb 22, 2017 ED Provider: Virginie Falk MD The patient is a 61 year old with a history of TIA, CVA and hypertension who presents to the ED due to heart palpitations for the past 3 days. All day Tuesday , she experienced intermittent episodes of irregular heartbeat, described as a "skipping rhythm. " The next day she had 5 episodes and the following 3 episodes. The patient came in today because her feet were so swollen she couldn' t get her shoes on. She also woke up this morning at 0700 with chest pressure that has continued throughout the day. Since a stroke in June of 2016, she has experienced intermittent, mild, lower extremity edema and left arm numbness. The patient denies denies sob, diaphoresis, and nausea. She is currently on Oxybutynin. Nursing Notes Stated Complaint: SWELLING,IRREGULAR HEART BEAT Chief Complaint: General Complaint Nursing Notes Reviewed: Yes Allergies: Coded Allergies: cephalexin (Verified Allergy, Intermediate, Hives, 02/22/17) Scheduled Amlodipine (Amlodipine) 10 Mg Tablet 10 MG PO DAILY Aspirin (Aspirin) 81 Mg Tablet 81 MG PO DAILY Atorvastatin (Lipitor) 80 Mg Tablet 80 MG PO DAILY Clopidogrel Bisulfate (Plavix) 75 Mg Tablet 75 MG PO DAILY Furosemide (Furosemide) 20 Mg Tab 10 MG PO DAILY Gabapentin (Gabapentin) 300 Mg Capsule 900 MG PO TID Levothyroxine (Levoxyl) 175 Mcg Tablet 175 MCG PO DAILY Losartan Potassium (Losartan Potassium) 100 Mg Tablet 100 MG PO DAILY Magnesium Oxide (Magnesium) 400 Mg Capsule 400 MG PO DAILY Montelukast (Montelukast) 10 Mg Tablet 10 MG PO DAILY Oxybutynin Chloride (Oxybutynin Chloride) 5 Mg Tablet 5 MG PO DAILY Pantoprazole DR (Pantoprazole DR) 40 Mg Tablet.dr 40 MG PO DAILY Ranitidine (Ranitidine) 150 Mg Capsule 150 MG PO BID Salmeterol Xinafoate (Serevent Diskus) 50 Mcg/Puff Inhaler 1 PUFF INH BID Scheduled PRN Albuterol Sulfate (Ventolin HFA Inhaler) 200 Puff/18 Gm Inhaler 2 PUFFS INHALATION BID PRN PRN For Shortness of Breath Fluticasone Propionate (Flovent HFA 220 mcg) 12 Gm Aer.w.adap 2 PUFFS INHALATION BID PRN PRN For Wheezing General Time Seen by : 13:19 Chief Complaint Other (heart palpitations) Hx Obtained From: Patient Arrived By: Walk-in Sudden in Onset?: Yes Onset Occurred: 3 days ago Symptom Duration: Since onset Severity: Current: No pain currently Recent Healthcare: No recent doctor visit, No recent hospitalization Similar Sx Previous: No Past Medical History Past Medical History Notes: Admitted 07/18/2016 for CVA with right sided facial numbness and MRI positive for stroke in the left thalamus, see neurology consultation by Dr. Street, discharged on low-dose aspirin and statin therapy PCP: Dr. Alvin Gonzalez Past Medical History CVA 07/18/16 hypothyroidism GERD hypertension asthma pre diabetes pancreatitis Reports: Transient ischemic attack Past Surgical History Toe surgery Family History Father had a stroke Smoking History Unknown if Ever Smoker Social History Other Social History: Good social support, , Local resident Ambulatory Status Independent Review of Systems Constitutional: Denies: Chills, Fever Respiratory: Denies: Shortness of breath Cardiovascular: Reports: Chest pain ("pressure"), Palpitations GI: Denies: Nausea, Vomiting Musculoskeletal: Reports: Extremity swelling Skin: Denies Diaphoresis Neurologic: Reports: Numbness Complete sys rev & neg: except as marked. Physical Exam Initial Vital Signs Vital Signs (First) Date Time Temp Pulse Resp B/P Pulse Ox O2 Delivery O2 Flow Rate FiO2 02/22/17 12:17 36.5 69 16 124/74 97 Room Air Initial VS: Reviewed, Vital signs normal General/Constitutional: Awake, Alert, Cooperative Respiratory / Chest: Atraumatic, Breath sounds NL, Breath sounds = bilat Cardiovascular: Heart rate NL, Regular rhythm, Heart sounds NL Lower Ext Edema: Positive: Bilateral 2+ Abdomen: Atraumatic, Soft, Non-tender Right Leg / Calf: Positive: Swelling present... Left Leg / Calf: Positive: Swelling present... Skin: Atraumatic, Warm, Dry Neurologic: Oriented X3, Speech NL, No motor deficits Head / Eyes: Atraumatic, Normocephalic, PERRL, EOMI Upper Extremity / MS: Atraumatic, Inspection NL, No deformity Right Ankle: Positive: Swelling present... Left Ankle: Positive: Swelling present... Right Foot: Positive: Swelling present... Right Great Toe: Positive: Swelling present... Interpretation & Diagnostics Lab Results Interpretation Result Diagram: 02/22/17 1245 02/22/17 1245 Test 02/22/17 12:45 White Blood Count 9.7th/mm3 (3.8-10.1) Red Blood Count 4.84mil/mm3 (3.90-5.20) Hemoglobin 13.3g/dL (12.0-15.6) Hematocrit 42.3% (35.0-46.0) Mean Corpuscular Volume 87.4fL (81-100) Mean Corpuscular Hemoglobin 27.5pg (27.0-35.0) Mean Corpuscular Hemoglobin Concent 31.4% (32.0-37.0) Red Cell Distribution Width 15.1% (12.3-15.4) Platelet Count 204bil/L (150-400) Neutrophils (%) (Auto) 66.5% (40-74) Lymphocytes (%) (Auto) 20.1% (14-46) Monocytes (%) (Auto) 9.3% (4-12) Eosinophils (%) (Auto) 3.6% (0-5) Basophils (%) (Auto) 0.2% (0-3) Sodium Level 140mEq/L (134-144) Potassium Level 3.8mEq/L (3.5-5.2) Chloride Level 101mEq/L (97-108) Carbon Dioxide Level 25mmol/L (18-29) Blood Urea Nitrogen 12mg/dL (8-27) Creatinine 0.49mg/dL (0.57-1.00) Estimat Glomerular Filtration Rate 183mL/min (>59) Glucose Level 116mg/dL (60-99) Calcium Level 9.4mg/dL (8.5-10.1) Magnesium Level 1.7mg/dL (1.6-2.6) Total Bilirubin 0.6mg/dL (0.0-1.2) Aspartate Amino Transf (AST/SGOT) 20U/L (0-50) Alanine Aminotransferase (ALT/SGPT) 19U/L (0-32) Alkaline Phosphatase 128U/L (25-165) Troponin T < 0.010ug/L (0.0-0.011) Pro-B-Type Natriuretic Peptide 84.27pg/mL (0-287) Total Protein 8.1g/dL (6.4-8.4) Albumin 3.6g/dL (3.4-5.0) Hold Muro Top Tube Received (Received) ECG Interpretation ECG Interpretation: similar to EKG on 10/15/16 Time: 13:33 Interpreted by: ED physician Normal ECG Interpretation: Normal sinus rhythm (rate 64), No acute ischemic changes, Normal axis, Normal intervals X-Ray Chest Interpretation Chest Xray Interpretation: IMPRESSION: Mild basilar scarring/atelectasis. No pneumonia or overt heart failure. Dictated by: Arun Ramos M.D. on 02/22/2017 at 12:16 Approved by: Arun Ramos M.D. on 02/22/2017 at 12:17 View: Portable Interpretation / Wet Read by: Interpret - Radiologist Re-Eval/Medical Decision Med Decision/Clinical Course The patient has been having palpitations for 3 days, she did not have any today. Her primary concern was for swelling in her lower extremities which is unusual for her. Since her stroke she has had some mild edema but it is more prominent today. On review systems the patient also mentions some chest discomfort that was noted upon waking. Given the duration of time, lack of EKG changes, with a normal troponin, she is ruled out for IN. As far as her lower extremity swelling differential diagnoses considered were DVT, cellulitis, renal failure, congestive heart failure, and trung insufficiency. Counseled Regarding: Diagnosis, Lab results, Need for follow-up, When/why to return to ED Discharge & Departure Primary Impression: Lower extremity edema Laterality: bilateral Qualified Code: R60.0 - Localized edema Disposition: Home Discharge Condition All VS Reviewed: Yes Condition: Stable Additional Instructions: Thank you for entrusting us with your care today. There are no dangerous findings for your symptoms. Follow up with your primary care physician in one week. Take your water pill for the next 3 days. Return to the Emergency Department if you experience any new or worsening symptoms. I hope you feel better soon! Referrals: Alvin Gonzalez MD (PCP) Laura Attestation Portion of this note were transcribed by Duyen Carrero. I, Dr. Falk , personally performed the history, physical exam, and medical decision-making: I reviewed and confirmed the accuracy for the information in the transcribed note. Signed by: laura Izquierdo, 02/22/17 1500 copies to: Alvin Gonzalez MD, [place] Feb 22, 2017 13:36 Virginie Falk MD Feb 22, 2017 13:37
[2017-02-22 13:39] LABS: TROPONIN T < 0.010 ug/L (0.0-0.011)
[2017-02-22] MEDS ORDERED: FUR20 PO (14:37)
[2017-02-22 15:04] VITALS: BP 132/67; PULSE 67; RESP 20; O2SAT 98
== END 2017-02-22 15:04 | disposition home or self-care (01) ==
LOC: SED 12:11
DX: R60.0 Localized edema (principal); I10 Essential (primary) hypertension; J45.909 Unspecified asthma, uncomplicated; K21.9 Gastro-esophageal reflux disease without esophagitis; E03.9 Hypothyroidism, unspecified; R73.03 Prediabetes; Z86.73 Personal history of transient ischemic attack (TIA), and cerebral infarction without residual deficits; Z79.82 Long term (current) use of aspirin; Z88.1 Allergy status to other antibiotic agents